=== PATIENT | female | born 1990 | race Caucasian/White ===

== ENCOUNTER 2017-08-02 15:22 | Inpatient (IN) | payer OTHER ==
[~2017-08-02] VITALS: Ht 162.6 cm; Wt 61.2 kg
[2017-08-03] MEDS ORDERED: MIRALAX 17 GM POWD.PACK PO PRN (02:00)
[2017-08-03] MEDS ORDERED: ACETAMINOPHEN 325 MG TABLET PO PRN (02:00)
[2017-08-03] MEDS ORDERED: ONDANSETRON 4 MG/2 ML VIAL IM PRN (02:00)
[2017-08-03] MEDS ORDERED: MAGNESIUM HYDROXIDE 30 ML LIQUID UDC PO PRN (02:00)
[2017-08-03] MEDS ORDERED: IBUPROFEN 400 MG TABLET PO PRN (02:00)
[2017-08-03] MEDS ORDERED: MAG HYDROX/AL HYDROX/SIMETH 30 ML LIQUID UDC PO PRN (02:00)
[2017-08-03] MEDS ORDERED: diphenhydrAMINE 50 MG CAPSULE PO PRN (02:00)
[2017-08-03] MEDS ORDERED: LOPERAMIDE HCL 2 MG CAPSULE PO PRN ×2 (02:00)
[2017-08-03] MEDS ORDERED: DICYCLOMINE HCL 20 MG TABLET PO PRN (02:00)
[2017-08-03] MEDS ORDERED: CLONIDINE HCL 0.1 MG TABLET PO PRN (02:00)
[2017-08-03 02:36] LABS: BASOPHILS # (AUTO) 0.1 K/uL (0.0-8.0); BASOPHILS % (AUTO) 1.1 % (0.0-2.0); EOSINOPHILS # (AUTO) 0.6 K/uL (0.0-0.7); EOSINOPHILS % (AUTO) 8.2 % (0.0-7.0); HEMATOCRIT 38.9 % (36.7-47.1); HEMOGLOBIN 13.3 g/dL (12.5-16.3); LYMPHOCYTES # (AUTO) 2.2 K/uL (20.0-40.0); LYMPHOCYTES % (AUTO) 31.8 % (20.5-51.5); MEAN CORPUSCULAR HEMOGLOBIN 30.1 uug (23.8-33.4); MEAN CORPUSCULAR HGB CONC 34 g/dL (32.5-36.3); MEAN CORPUSCULAR VOLUME 88.2 fL (73.0-96.2); MONOCYTES # (AUTO) 0.7 K/uL (2.0-10.0); MONOCYTES % (AUTO) 10.6 % (0.0-11.0); NEUTROPHILS # (AUTO) 3.4 K/uL (1.8-8.9); NEUTROPHILS % (AUTO) 48.3 % (38.5-71.5); PLATELET COUNT (AUTO) 453 K/uL (152-348); RED BLOOD CELL COUNT(AUTO) 4.41 MIL/uL (4.06-5.63)
--- NOTE | 2017-08-03 02:45 | NUR ---
Intake Note Pt is met in first floor Intake Room at approximately 0230. Pt presents as hyperactive, difficulty sitting still, gets up and walks around. Pt has poor eye contact, worried, avoidant, anxious and sad. Appearance is disheveled and unkempt, slumped posture. Affect is agitated with racing thoughts-pt clearly intoxicated-reports last use of IV Heroin at 0200 hours. Affect shows feelings of guilt/shame. Pt reports use over the past month escalating in past week, 6 months of sobriety before this relapse and job loss 2 days prior. VS's taken, possessions searched by CHEF TEACHER's, hospital procedure and protocols explained to pt and agreed upon.
[2017-08-03 02:50] LABS: ALANINE AMINOTRANSFERASE 41 U/L (16-63); ALKALINE PHOSPHATASE 58 U/L (50-136); AMYLASE 20 U/L (25-115); ASPARTATE AMINOTRANSFERASE 46 U/L (15-37); BILIRUBIN,TOTAL 0.4 mg/dL (0.2-1.0); CARBON DIOXIDE 26 mmol/L (21-32); CHLORIDE 100 mmol/L (98-107); CREATININE 0.8 mg/dL (0.6-1.3); GLUCOSE 63 mg/dL (74-106); LIPASE 120 U/L (73-393); MAGNESIUM 2.2 mg/dL (1.8-2.4); POTASSIUM 3.6 mmol/L (3.5-5.1); TOTAL PROTEIN, SERUM 8.6 g/dL (6.4-8.2); UREA NITROGEN, BLOOD 9 mg/dL (7-18)
[2017-08-03 02:50] LABS: *URINE HCG, QUAL NEGATIVE
[2017-08-03 02:55] LABS: ETHANOL < 3 MG/DL (0-0)
[2017-08-03 03:00] LABS: *AMPHETAMINE, URINE POSITIVE (NEGATIVE); *BARBITURATE, URINE NEGATIVE (NEGATIVE); *CANNABINOID, URINE NEGATIVE (NEGATIVE); *COCCAINE, URINE POSITIVE (NEGATIVE); *OPIATE, URINE POSITIVE (NEGATIVE); *PHENCYCLIDINE SCREEN,URINE NEGATIVE (NEGATIVE)
[2017-08-03] MEDS ORDERED: BUPRENORPHINE HCL 2 MG TAB.SUBL SL PRN (03:00)
[2017-08-03 03:01] LABS: THYROID STIMULATING HORMONE 1.914 mIU/mL (0.358-3.740)
--- NOTE | 2017-08-03 04:00 | NUR ---
Admission Note Patient is a 26 y/o female admitted at [facility] at approximately 0330am of 08/03/17or medically supervised withdrawal from Heroin. Body search done and skn check performed in Room 303, no contraband found. Track and "pick" pena found on right arm, from elbow to right neck, no bleedoing noted. Pt is 5'4" and 135 lbs per patient. Pt is cooperative during assessment but unable to sit still, speech very soft with repeated requests to speak louder. Patient is oriented to floor unit and room. Patient follows a "pescaterian" diet with NKDA, and wishes to be a full code. Pt is alert and oriented x 4(altered-severely intoxicated). No shortness fo breath noted. Respiration even & unlabored. Abdomen soft and non-distended, last bowel movement originally reported as 6 days prior, now 2 bouts of diarrhea since admitted. Pt too intoxicated for COWS or CIWA. Bowels sounds active in all quadrants, no c/o pain or H/A. Pt denies psychiatric hx, however list Psyc meds. Anxiety and depression finally admitted to. Substance Use: 1. Heroin- Pt has been using IV for 10 years with periods of sobriety, longest 9 months in 2016. Used immediately before admission. 2. Methamphetamine- Pt tested positive for, admits to using "several days prior" 3. Cocaine- Pt tested positive for, Pt stated last used 2 years prior, admits now it might be more recent. [place] Hx: November 2016- drug detox/rehab, claims 16 other times but unable to elicit. Pt refuse flu and pneumonia vaccine, When asked what is going to be different about this hospitalization she states "I have to get sober or I'm going to overdose and ". Fall precautions in place, bed locked in lowest position and in Semi-Fowlers with both upper siderails raise, Call light within reach. Will continue to monitor and attend to all needs promptly
--- NOTE | 2017-08-03 07:30 | NUR ---
Start of shift note; Received report from night nurse. Patient is a 26 year old female admitted for Opiate withdrawals. Patient appears very anxious, agitated, pacing back and forth in the room, redirected patient as needed. Patient reported diarrhea and received PRN Imodium. Patient appears disheveled, worried, reports insomnia. Patient stated " I feel like im going crazy, i cant sit still, i have not slept for days", redirected patient. Patient is AOX4, sensitive to tactile stimuli with COWS score of 10. Patient's UDS came back positive for Cocaine, Methamphetamine and Opiate. Clarified it with patient, patient stated that she took small amounts of methamphetamine and Cocaine yesterday. Educated patient regarding the importance of compliance to treatment and medication regime, verbalized understanding. All safety measures secured. Encouraged patient to get some rest and maintain adequate fluid intake. Will closely monitor patient.
[2017-08-03 08:00] VITALS: BP 113/62
[2017-08-03] MEDS ORDERED: LORAZEPAM 1 MG TABLET PO ONE (08:00)
[2017-08-03] MEDS: MULTIVITAMINS,THERAPEUTIC TABLET PO SCH (08:11)
--- NOTE | 2017-08-03 08:11 | NUR ---
Medication Administration; Patient noted to be very anxious and agitated pacing back and forth in the room and hallway unable to sit still. Charge nurse made aware. Ativan 2mg PO one time given as ordered for anxiety and agitation. Will closely monitor patient.
--- NOTE | 2017-08-03 09:11 | NUR ---
Re-assessment; Patient is calm and comfortable at this time. Patient is currently resting, respirations even and unlabored. Ativan medication noted to be effective.
[2017-08-03] MEDS ORDERED: LAMO150T PO (09:34)
[2017-08-03] MEDS ORDERED: TRAZ-147 PO (09:34)
[2017-08-03] MEDS ORDERED: VENL75TA4 PO (09:34)
[2017-08-03] MEDS ORDERED: MELA5TAB PO (09:38)
[2017-08-03] MEDS ORDERED: ADAP45GE TP (09:38)
[2017-08-03] MEDS ORDERED: [UNRECOGNIZED DRUG - CODE] TP (09:38)
[2017-08-03] MEDS ORDERED: NICO-671 TP (09:38)
[2017-08-03] MEDS ORDERED: OMEP20CA10 PO (09:38)
[2017-08-03] MEDS ORDERED: HYDROXYZINE PAMOATE 25 MG CAPSULE PO PRN (11:00)
[2017-08-03] MEDS ORDERED: LORAZEPAM 1 MG TABLET PO PRN (11:00)
[2017-08-03] MEDS ORDERED: NICOTINE 14 MG/24HR PATCH TD PRN (11:00)
[2017-08-03] MEDS ORDERED: NICOTINE POLACRILEX 4 MG GUM-PK OF TEN BC PRN (11:00)
[2017-08-03 12:00] VITALS: BP 105/73
[2017-08-03 16:00] VITALS: BP 92/56
[2017-08-03] MEDS: BUPRENORPHINE HCL 2 MG TAB.SUBL SL SCH ×2 (16:36→21:29)
--- NOTE | 2017-08-03 17:06 | NUR ---
Subutex held; Scheduled Subutex held d/t low COWS score of 7 , low BP of 92/56, HR of 58. Medication held per protocol. Will closely monitor patient.
--- NOTE | 2017-08-03 18:17 | NUR ---
End of shift note; Patient is AOX4, complaining of agitation, restless legs, flushed face and muscle aches. Patient's last COWS score is 7 at 1600. Scheduled Subutex held per protocol d/t low COWS score. Educated patient regarding the importance of compliance to treatment and medication regime, patient verbalized understanding. All safety measures secured. Will closely monitor patient.
[2017-08-03 20:00] VITALS: BP 116/72
--- NOTE | 2017-08-03 20:00 | NUR ---
Start of Shift Pt is a 26 year old female admitted for Opiate withdrawal. Pt is placed on modified Subutex taper. Pt presents in room, in bed, disheveled, unkempt, flushed, red eyes, hoarding food, clothes thrown on the floor, worried, anxious, reports feeling restless, sensitivity to light, reports body/joint/muscle aches, chills, abdominal cramping, nausea. At time of assessment, scheduled medications due. Safety measures in place, will continue to monitor.
[2017-08-03] MEDS: LAMOTRIGINE 25 MG TABLET PO SCH (20:22)
[2017-08-03] MEDS: GABAPENTIN 300 MG CAPSULE PO SCH (20:22)
[2017-08-03] MEDS ORDERED: LORAZEPAM 1 MG TABLET PO SCH (21:00)
[2017-08-04] VITALS: BP 100/82
[2017-08-04] MEDS: TRAZODONE 100 MG TABLET PO PRN (01:10)
--- NOTE | 2017-08-04 01:10 | NUR ---
PRN Administration Pt reports difficulty sleeping, requests sleeping aid. Trazodone 100mg PRN administered. Safety measures in place, will continue to monitor.
--- NOTE | 2017-08-04 02:10 | NUR ---
PRN Reassessment Upon reassessment, pt is in bed, sleeping, respirations even/unlabored. Trazodone effective. Safety measures in place, will continue to monitor.
--- NOTE | 2017-08-04 04:00 | NUR ---
COWS deferred d/t pt sleeping - to assess while pt is awake as ordered. Pt refused to be woken up for 0[address] measures in [address], will continue to monitor.
--- NOTE | 2017-08-04 07:01 | NUR ---
End of Shift Pt is a 26 year old female admitted for Opiate withdrawal. Pt is placed on modified Subutex taper. During shift, Pt remained isolative in room, in bed, disheveled, unkempt, flushed, red eyes, hoarding food, clothes thrown on the floor, worried, anxious, reports feeling restless, sensitivity to light, reports body/joint/muscle aches, chills, abdominal cramping, nausea scheduled Subutex administered, COWS 14 decreased to COWS 8. Trazodone 100mg PRN administered for sleep, effective. Pt slept for 9 hours, intake of 500 ml PO, voids x3 and stool x0. Safety measures in place, Endorsed to day shift nurse.
--- NOTE | 2017-08-04 07:36 | NUR ---
Start of shift note; Received report from night nurse. Patient is a 26 year old female admitted on 08/03/17 for Opiate withdrawals. Patient was placed on Subutex taper. Patient appears anxious, complaining of muscle aches, restless legs, diaphoresis, stomach cramps. Educated patient regarding unit protocols and policies, patient verbalized understanding. Encouraged patient to participate in group activities and therapy. All safety measures secured. Will continue to monitor patient.
[2017-08-04 08:00] VITALS: BP 113/60
[2017-08-04] MEDS: BUPRENORPHINE HCL 2 MG TAB.SUBL SL SCH ×3 (09:00→22:00)
[2017-08-04] MEDS: VENLAFAXINE XR 75 MG CAP.SR.24H PO SCH (09:00)
[2017-08-04] MEDS: MULTIVITAMINS,THERAPEUTIC TABLET PO SCH (09:00)
[2017-08-04] MEDS: LAMOTRIGINE 25 MG TABLET PO SCH ×2 (09:00→22:00)
[2017-08-04] MEDS: GABAPENTIN 300 MG CAPSULE PO SCH ×3 (09:00→22:00)
[2017-08-04] MEDS ORDERED: TUBERCULIN,PURIF.PROT.DERIV. 5 TU/0.1 ML TEST ID ONE (09:00)
[2017-08-04 09:08] LABS: HEPATITIS B SURFACE AG Negative (Negative)
[2017-08-04 12:00] VITALS: BP 115/70
--- NOTE | 2017-08-04 12:00 | NUR ---
Endorsement note; Detailed report given to covering nurse. Patient is AOX4. Safety measures secured. Met all needs.
--- NOTE | 2017-08-04 12:00 | NUR ---
TRANSFER OF CARE RECEIVED REPORT FROM NURSE. PT IS A/OX4, RESPIRATIONS EVEN AND UNLABORED. PT IS A 26/YO F ADMITTED FOR OPIATE WITHDRAWAL. PT IS PLACED ON SUBUTEX TAPER STARTED YESTERDAY AND TOLERATING WELL PER PIZZA CHEF NURSE. WILL CONTINUE TO MONITOR.
[2017-08-04] MEDS: DICYCLOMINE HCL 20 MG TABLET PO SCH ×2 (14:45→22:00)
[2017-08-04] MEDS: METHOCARBAMOL 750 MG TABLET PO PRN (14:45)
--- NOTE | 2017-08-04 14:45 | NUR ---
PRN ROBAXIN 750 MG PO PRN AND MAALOX PRN GIVEN FOR HEARTBURN AND MUSCLE CRAMPS. WILL MONITOR FOR EFFECTIVENESS.
--- NOTE | 2017-08-04 15:45 | NUR ---
REASSESSMENT PT REPORT MEDICATIONS WERE EFFECTIVE. WILL CONTINUE TO MONITOR.
[2017-08-04 16:30] VITALS: BP 130/74
--- NOTE | 2017-08-04 17:30 | NUR ---
PRN PT HAD FACIAL FLUSHING, WAS AGITATED, APPEARED FIDGETY AND PACED IN HALLWAY, C/O INTENSE FEELINGS OF ANXIETY. ATIVAN 2 MG PO PRN WAS GIVEN. WILL MONITOR FOR EFFECTIVENESS.
--- NOTE | 2017-08-04 18:30 | NUR ---
REASSESSMENT PT IS RESTING IN BED WITH EYES CLOSED AND APPEARS TO BE SLEEPING. WILL CONTINUE TO MONITOR.
--- NOTE | 2017-08-04 18:42 | NUR ---
END OF SHIFT ASSUMED CARE OF PT AT 1200. PT IS ON A SUBUTEX TAPER AND TOLERATING WELL. PT HAD INTENSE FEELINGS OF PANIC AND AGITATION; ATIVAN 2 MG PO PRN WAS GIVEN DURING SHIFT. ROBAXIN, MAALOX, ATIVAN PRNS WERE GIVEN ON SHIFT. PT WAS SLEEPING INTERMITTENTLY DURING SHIFT. PT ATE 100% OF MEALS. PT WAS ABLE TO TAKE A SHOWER. SAFETY MEASURES IN PLACE. WILL GIVE ENDORSEMENT TO GASSER MACHINE OPERATOR.
--- NOTE | 2017-08-04 19:16 | NUR ---
Start of shift note Received report from day shift nurse. Pt is a 26 yo female, A+Ox4, presenting to [facility] for Opiate/Meth/Cocaine withdrawal. Pt noted with anxiety, agitation, and restlessness. Pt is on 4 day Subutex taper, tolerated well. respirations even and unlabored. Will continue to monitor.
[2017-08-04 20:15] VITALS: BP 115/64
[2017-08-04] MEDS: CLONIDINE HCL 0.1 MG TABLET PO SCH (22:00)
[2017-08-04] MEDS: BACLOFEN 10 MG TABLET PO SCH (22:00)
[2017-08-05 00:24] VITALS: BP 127/72
[2017-08-05] MEDS ORDERED: LAMOTRIGINE 25 MG TABLET PO ONE (03:00)
[2017-08-05] MEDS: IBUPROFEN 600 MG TABLET PO PRN ×2 (03:02→11:02)
--- NOTE | 2017-08-05 03:02 | NUR ---
PRN Motrin Pt c/o headache and requested for PRN Motrin. Medication given and tolerated well. Will reassess within 1 HR. Will continue to monitor.
--- NOTE | 2017-08-05 04:01 | NUR ---
PRN Motrin Reassessment Medication effective. Pt expresses reduction in headache. No s/s of ASE noted at this time. Respirations even and unlabored. Will continue to monitor.
[2017-08-05 04:38] VITALS: BP 119/68
--- NOTE | 2017-08-05 06:59 | NUR ---
End of shift note Pt was continuously noted with agitation, anxiety, and restlessness. Pt remained in room for majority of shift except to go smoke on smoking patio and to get food from kitchen. Pt was given PRN Motrin @0302. Pt slept for a total of 8 HRS. Last COWS: 9 @0400. Respirations even and unlabored. Will endorse to day shift nurse.
--- NOTE | 2017-08-05 07:22 | NUR ---
BEGINNING OF SHIFT Patient endorsement report received from shift mgr nurse, all pertinent information discussed. Patient is a 26 year old female with admitting Dx: Opiate withdrawal, with substance use of: methamphetamine and cocaine. Patient continues under very close observation, patient Scheduled to begin day 2 of 4 day Subutex taper, as ordered. Per shift mgr patient with last cow score of: 9. Received PRN: Motrin during shift mgr. slept for 8 hours. Fall and seizure precautions observed at all times. Patient received awake, alert and oriented x4, educated regarding plan of care for the day, and medication regimen with good verbal understanding. fall and seizure precautions observed and in place. will continue to monitor closely. safety measures in place.
[2017-08-05 08:34] VITALS: BP 106/63
[2017-08-05] MEDS: MULTIVITAMINS,THERAPEUTIC TABLET PO SCH (08:37)
[2017-08-05] MEDS: CLONIDINE HCL 0.1 MG TABLET PO SCH ×2 (08:38→22:46)
[2017-08-05] MEDS: DICYCLOMINE HCL 20 MG TABLET PO SCH ×3 (08:38→22:46)
[2017-08-05] MEDS: VENLAFAXINE XR 75 MG CAP.SR.24H PO SCH (08:38)
[2017-08-05] MEDS: BACLOFEN 10 MG TABLET PO SCH ×3 (08:38→22:46)
[2017-08-05] MEDS: GABAPENTIN 300 MG CAPSULE PO SCH ×2 (08:38→14:14)
[2017-08-05] MEDS: LAMOTRIGINE 25 MG TABLET PO SCH ×2 (08:44→22:46)
[2017-08-05] MEDS ORDERED: BUPRENORPHINE HCL 2 MG TAB.SUBL SL SCH (09:00)
[2017-08-05] MEDS ORDERED: KETOROLAC TROMETHAMINE 30 MG INJ IM PRN (10:30)
[2017-08-05] MEDS: ONDANSETRON ODT 4 MG TAB.RAPDIS SL PRN (11:02)
[2017-08-05] MEDS: METHOCARBAMOL 750 MG TABLET PO PRN (11:02)
[2017-08-05] MEDS: CLONIDINE HCL 0.1 MG TABLET PO PRN (11:02)
--- NOTE | 2017-08-05 11:02 | NUR ---
PRN MOTRIN/ROBAXIN/CLONIDINE/ZOFRAN Patient reported to nurse of pain in legs 12/17, c/o increase anxiety, c/o nausea. patient was noted wringing hands, pacing in room, restlessness. patient reports "my muscle and legs hurt" patient was administered Motrin as ordered, Robaxin as ordered, and clonidine as ordered, will monitor effectiveness of medications.
--- NOTE | 2017-08-05 11:32 | NUR ---
ZOFRAN REASSESSMENT reports medication effective, feels less nausea, no vomiting noted, will continue to monitor.
--- NOTE | 2017-08-05 12:02 | NUR ---
MOTRIN/ROBAXIN/CLONIDINE REASSESSMENT Patient reports current pain level of 2/10 in leg bilateral legs, per patient tolerable pain level, reports medication effective. Patient reports feeling less anxious, clonidine effective, VS WNL.
[2017-08-05] MEDS: OMEPRAZOLE 20 MG PO SCH (12:22)
[2017-08-05 13:50] VITALS: BP 101/56
[2017-08-05] MEDS: BUPRENORPHINE HCL 2 MG TAB.SUBL SL SCH ×2 (14:14→22:46)
[2017-08-05 17:42] VITALS: BP 112/60
--- NOTE | 2017-08-05 18:59 | NUR ---
END OF SHIFT Patient alert and oriented x4, monitored closely during shift. Patient has a worried, and anxious facial expression. Patient is disheveled. noted with flat affect, and anxious mood. Patient with admitting Dx: opiate withdrawal, continues on a 4 day Subutex taper as ordered. During shift patient presented with: gooseflesh, clammy skin, flushed face, anxiety, yawning, tremors, stomach cramps, moist eyes, bone and joint aches, enlarged pupils, difficulty sitting still, restlessness, and chills. Initial cow score of: 13, last cow score of: 12. detox medication effective at reducing withdrawal symptoms. Patient was encouraged adequate PO fluid intake as tolerated. Was administered PRN: Motrin, Robaxin, Clonidine and Zofran as ordered, medications were effective. Patient encouraged to participate in therapy sessions, patient denies any SI/HI. Patient preferred to stay in room despite much encouragement to attend therapy sessions. Patient was encouraged to verbalize feelings, encouraged to develop coping skills and utilization of non pharmacological interventions. patients safety measures are in place. call light kept with in reach, will continue to monitor. Endorsed to night assistant nurse, all pertinent information discussed.
--- NOTE | 2017-08-05 19:12 | NUR ---
Start of shift note Received report from day shift nurse. Pt is a 26 yo female, A+Ox4, presenting to [facility] for Opiate/Meth/Cocaine withdrawal. Pt noted to be anxious, agitated, and restless. Pt has HX of mood disorder, ADD, and anxiety which will be monitored during shift. Pt is on 4 day Subutex taper, tolerated well. Respirations even and unlabored. Will continue to monitor.
[2017-08-05 20:11] VITALS: BP 105/71
[2017-08-05] MEDS ORDERED: GABAPENTIN 300 MG CAPSULE PO SCH (21:00)
[2017-08-05] MEDS: TRAZODONE 100 MG TABLET PO PRN (22:58)
--- NOTE | 2017-08-05 22:58 | NUR ---
PRN Trazodone Pt c/o inability to sleep and requested for PRN Trazodone. Medication given and tolerated well. Will reassess within 1 HR. Will continue to monitor.
--- NOTE | 2017-08-05 23:55 | NUR ---
PRN Trazodone Reassessment Medication effective. Pt is resting well in bed. No s/s of ASE noted at this time. Respirations even and unlabored. Will continue to monitor.
[2017-08-06] VITALS (7 sets, daily range): BP systolic 97–128; BP diastolic 55–77
[2017-08-06] MEDS: OMEPRAZOLE 20 MG PO SCH (06:30)
--- NOTE | 2017-08-06 06:55 | NUR ---
End of shift note Pt was continuously noted to be anxious, agitated, and restless. Pt remained in room for majority of shift except to get food from kitchen, to go smoke on smoking patio, and to interact with other patients in recreational room periodically. Pt was given PRN Trazodone @2258. Pt slept for a total of 7 HRS. Last COWS: 9 @0400. Respirations even and unlabored. Will endorse to day shift nurse.
--- NOTE | 2017-08-06 07:27 | NUR ---
BEGINNING OF SHIFT Patient endorsement report received from overnight stocker nurse, all pertinent information discussed. Patient is a 26 year old female with admitting Dx: Opiate withdrawal, with substance use of: methamphetamine and cocaine. Patient continues under very close observation, patient Scheduled to begin day 3 of 4 day Subutex taper, as ordered. Per overnight stocker patient with last cow score of: 9. Received PRN: Trazodone during overnight stocker. slept for 7 hours. Fall and seizure precautions observed at all times. Patient received awake, alert and oriented x4, educated regarding plan of care for the day, and medication regimen with good verbal understanding. fall and seizure precautions observed and in place. will continue to monitor closely. safety measures in place.
[2017-08-06] MEDS: VENLAFAXINE XR 75 MG CAP.SR.24H PO SCH (08:38)
[2017-08-06] MEDS: DICYCLOMINE HCL 20 MG TABLET PO SCH ×3 (08:38→23:03)
[2017-08-06] MEDS: LAMOTRIGINE 25 MG TABLET PO SCH ×2 (08:38→23:03)
[2017-08-06] MEDS: GABAPENTIN 300 MG CAPSULE PO SCH ×3 (08:38→23:03)
[2017-08-06] MEDS: MULTIVITAMINS,THERAPEUTIC TABLET PO SCH (08:38)
[2017-08-06] MEDS: BACLOFEN 10 MG TABLET PO SCH (08:38)
[2017-08-06] MEDS: BUPRENORPHINE HCL 2 MG TAB.SUBL SL SCH ×3 (08:39→23:03)
[2017-08-06] MEDS: CLONIDINE HCL 0.1 MG TABLET PO SCH ×3 (08:41→23:03)
[2017-08-06] MEDS: BACLOFEN 20 MG TABLET PO SCH ×2 (14:05→23:03)
[2017-08-06] MEDS ORDERED: VENL75CA56 PO (14:55)
[2017-08-06] MEDS ORDERED: CLON0.1T14 PO (14:55)
[2017-08-06] MEDS ORDERED: TRAZ-147 PO (14:55)
[2017-08-06] MEDS ORDERED: GABA-534 PO (14:55)
[2017-08-06] MEDS ORDERED: IBUP-1955 PO (14:55)
[2017-08-06] MEDS ORDERED: DICY20TA28 PO (14:55)
[2017-08-06] MEDS ORDERED: BACL20TA PO (14:55)
[2017-08-06] MEDS ORDERED: LAMO25TA5 PO (14:55)
[2017-08-06] MEDS ORDERED: HYDR-3895 PO (14:55)
[2017-08-06] MEDS: CLONIDINE HCL 0.1 MG TABLET PO PRN (15:05)
--- NOTE | 2017-08-06 15:06 | NUR ---
PRN GIVEN Pt c/o of increase anxiety. Pt is fidgety and unable to stay still. Clonidine 0.1mg PO PRN and Vistaril 25mg PO PRN was given as ordered. Will continue to monitor.
--- NOTE | 2017-08-06 16:06 | NUR ---
CLONIDINE/VISTARIL REASSESSMENT Patient reports medication was effective. patient is now calm reports feeling less anxiety. Vital signs WNL. will continue to monitor closely.
--- NOTE | 2017-08-06 19:01 | NUR ---
END OF SHIFT Patient alert and oriented x4, monitored closely during shift. Patient has a worried, and anxious facial expression. Patient is disheveled. noted with flat affect, and anxious mood. Patient with admitting Dx: opiate withdrawal, continues on a 4 day Subutex taper as ordered. During shift patient presented with: chills, restlessness, enlarged pupils, bone and joint aches, moist eyes, nasal congestion, abdominal cramps, fine tremors and anxiety with initial cow score of: 11, last cow score of: 11. detox medication effective at reducing withdrawal symptoms. Patient was encouraged adequate PO fluid intake as tolerated. Was administered PRN: Clonidine and Vistaril as ordered, medications were effective. Patient encouraged to participate in therapy sessions, patient denies any SI/HI. Patient preferred to stay in room despite much encouragement to attend therapy sessions. Patient was encouraged to verbalize feelings, encouraged to develop coping skills and utilization of non pharmacological interventions. patients safety measures are in place. call light kept with in reach, will continue to monitor. Endorsed to shift engineer nurse, all pertinent information discussed.
--- NOTE | 2017-08-06 19:12 | NUR ---
Start of shift note Received report from day shift nurse. Pt is a 26 yo female, A+Ox4, presenting to [facility] for Opiate/Meth/cocaine withdrawal. Pt noted with anxiety, restlessness, and agitation. Pt is on 4 day Subutex taper, tolerated well. Respirations even and unlabored. Will continue to monitor.
[2017-08-06] MEDS ORDERED: MAGNESIUM CITRATE 296 ML BOTTLE PO ONE (21:30)
[2017-08-07 00:12] VITALS: BP 124/79
[2017-08-07 04:17] VITALS: BP 127/74
--- NOTE | 2017-08-07 07:00 | NUR ---
End of shift note Pt was continuously noted to be anxious, agitated, and restless. Pt remained in room for majority of shift except to get food from kitchen and to go smoke on smoking patio. Pt is on 4 day Subutex taper, tolerated well. Pt was not given any PRN medications during shift. Pt slept for a total of 7 HRS. Last COWS: 9 @0400. Respirations even and unlabored. Will endorse to day shift nurse.
[2017-08-07] MEDS: OMEPRAZOLE 20 MG PO SCH (07:23)
--- NOTE | 2017-08-07 07:39 | NUR ---
BEGINNING OF SHIFT Patient endorsement report received from shift engineer nurse, all pertinent information discussed. Patient is a 26 year old female with admitting Dx: Opiate withdrawal, with substance use of: methamphetamine and cocaine. Patient continues under very close observation, patient Scheduled to begin day 4 of 4 day Subutex taper, as ordered. Per shift engineer patient with last cow score of: 9. Received no PRNs during shift engineer. slept for 7 hours. Fall and seizure precautions observed at all times. Patient received awake, alert and oriented x4, educated regarding plan of care for the day, and medication regimen with good verbal understanding. fall and seizure precautions observed and in place. will continue to monitor closely. safety measures in place.
[2017-08-07 08:18] VITALS: BP 122/74
[2017-08-07] MEDS: MULTIVITAMINS,THERAPEUTIC TABLET PO SCH (08:34)
[2017-08-07] MEDS: GABAPENTIN 300 MG CAPSULE PO SCH ×3 (08:34→22:12)
[2017-08-07] MEDS: LAMOTRIGINE 25 MG TABLET PO SCH ×2 (08:34→22:12)
[2017-08-07] MEDS: VENLAFAXINE XR 75 MG CAP.SR.24H PO SCH (08:34)
[2017-08-07] MEDS: DICYCLOMINE HCL 20 MG TABLET PO SCH ×3 (08:35→22:12)
[2017-08-07] MEDS: CLONIDINE HCL 0.1 MG TABLET PO SCH ×3 (08:35→22:12)
[2017-08-07] MEDS: BACLOFEN 20 MG TABLET PO SCH ×3 (08:35→22:12)
[2017-08-07] MEDS ORDERED: BUPRENORPHINE HCL 2 MG TAB.SUBL SL SCH (09:00)
[2017-08-07] MEDS ORDERED: HYDROXYZINE PAMOATE 25 MG CAPSULE PO PRN (11:30)
[2017-08-07] MEDS ORDERED: FLEET ENEMA 133 ML BOTTLE RC PRN (11:30)
[2017-08-07] MEDS ORDERED: MAGNESIUM CITRATE 296 ML BOTTLE PO PRN (12:45)
[2017-08-07] MEDS: METHOCARBAMOL 750 MG TABLET PO PRN ×2 (12:49→23:03)
--- NOTE | 2017-08-07 12:49 | NUR ---
PRN ROBAXIN Patient c/o muscle pain 10/17, provided with NPI with no relief, administered Robaxin as ordered, will monitor effectiveness of medication.
[2017-08-07] MEDS: IBUPROFEN 600 MG TABLET PO PRN ×2 (13:03→21:11)
--- NOTE | 2017-08-07 13:03 | NUR ---
PRN MOTRIN Patient c/o generalized body pain 12/17, provided with non pharmacological interventions with no relief, administered Motrin as ordered, will monitor effectiveness.
[2017-08-07 13:49] VITALS: BP 121/68
--- NOTE | 2017-08-07 13:49 | NUR ---
ROBAXIN REASSESSMENT Patient reports medication somewhat effective, decrease in muscle aches current pain: 08/17. will continue to monitor.
--- NOTE | 2017-08-07 14:04 | NUR ---
MOTRIN REASSESSMENT Patient reports medication somewhat effective, current pain level of 4/10. no facial grimacing noted. will continue to monitor.
--- NOTE | 2017-08-07 14:27 | NUR ---
PRN: MAG CITRATE Patient reports feeling constipated, and only mediation that works for her is magnesium citrate, patient was offered a stool softener and refused. abdomen is soft and noted with mild distention, abdomen sounds heard in all quadrats, medication administered as ordered. will monitor closely.
[2017-08-07 16:23] VITALS: BP 128/77
[2017-08-07] MEDS: ONDANSETRON ODT 4 MG TAB.RAPDIS SL PRN (16:27)
--- NOTE | 2017-08-07 16:28 | NUR ---
PRN ZOFRAN/TYLENOL Patient reports pain level of 6/10 generalized body, reports feeling nausea. Administered Tylenol as ordered for pain, and Zofran 4MGSL as ordered for nausea, will monitor effectiveness of medications.
--- NOTE | 2017-08-07 17:28 | NUR ---
TYLENOL REASSESSMENT Patient reports medication effective, current pain level 2/10 will continue to monitor.
--- NOTE | 2017-08-07 17:28 | NUR ---
ZOFRAN REASSESSMENT Medication effective, patient reports no longer feels nauseous. will continue to monitor.
--- NOTE | 2017-08-07 19:00 | NUR ---
END OF SHIFT Patient alert and oriented x4, monitored closely during shift. Patient has a worried, and anxious facial expression. Patient is disheveled. noted with flat affect, and anxious mood. Patient with admitting Dx: opiate withdrawal, completed Subutex taper as ordered, and is scheduled to be discharged tomorrow morning. . During shift patient presented with: chills, difficulty sitting still, mild bone and joint aches, enlarged pupils, moist eyes, stomach cramps, tremors that can be felt but not seen, and anxiety. Initial cow score of: 9, and last cow score of: 6. Patient was encouraged adequate PO fluid intake as tolerated. Was administered PRN: Tylenol, Zofran, mag citrate, Robaxin, and Motrin as ordered, medications were effective. Patient encouraged to participate in therapy sessions, patient denies any SI/HI. Patient preferred to stay in room despite much encouragement to attend therapy sessions. Patient was encouraged to verbalize feelings, encouraged to develop coping skills and utilization of non pharmacological interventions. patients safety measures are in place. call light kept with in reach, will continue to monitor. Endorsed to security shift manager nurse, all pertinent information discussed.
--- NOTE | 2017-08-07 19:15 | NUR ---
START OF SHIFT Patient is a 26-year-old female admitted on 08/03/17 for Heroin and Fentanyl withdrawal. Patient has completed a modified Subutex taper this morning, tolerated well, scheduled for discharge tomorrow. Patients last COWS score was 6 per day shift nurse. Patient PRN Robaxin, Motrin, Tylenol, Zofran, and mag citrate x2 for constipation. Patient reports that she is still constipated at this time. Upon assessment, patient is alert and oriented x4, complaining of stomach pain related to constipation. Patient reports increased anxiety related to discharge tomorrow as well as generalized body aches 8/10 on pain scale. Patients room has several food wrappers and beverage bottles scattered across countertops. Patient is on fall precautions with no history of seizure. Safety measures in place, side rails up x2, bed locked in low position, call light within reach. Will continue to monitor.
[2017-08-07 20:00] VITALS: BP 114/74
--- NOTE | 2017-08-07 20:07 | NUR ---
PRN FLEET ENEMA Patient continues to complain of constipation and "stomach pain" despite mag citrate x2 today. PRN Fleet Enema administered via rectum, patient tolerated well. SN instructed patient about enema and answered patient's questions. Safety measures in place, call light within reach. Will monitor for effectiveness.
--- NOTE | 2017-08-07 20:37 | NUR ---
PRN FLEET ENEMA REASSESSMENT Patient reports that she was able to have "a couple" bowel movements, describing the stool "hard and rock-like" initially, as the stool progressed to softer "mushy" stool. Patient reports that her stomach pain has improved and "barely hurts anymore." PRN fleet enema effective. Safety measures in place, call light within reach. Will continue to monitor.
--- NOTE | 2017-08-07 21:11 | NUR ---
PRN MOTRIN Patient reports generalized body aches, 8/10 on pain scale. PRN Motrin given PO. Safety measures in place, call light within reach. Will monitor for effectiveness.
--- NOTE | 2017-08-07 22:11 | NUR ---
PRN MOTRIN REASSESSMENT Patient reports the pain has improved "slightly" and is currently reporting pain as tolerable. Safety measures in place, call light within reach. Will continue to monitor.
[2017-08-07] MEDS: TRAZODONE 100 MG TABLET PO PRN (23:06)
--- NOTE | 2017-08-07 23:06 | NUR ---
PRN ROBAXIN & TRAZODONE Patient reports pain 8/10 for generalized body aches. Patient reports difficulty sleeping and is requesting sleep aid. PRN Robaxin given PO at 2303, PRN Trazodone given PO at 2306. Safety measures in place, call light within reach. Will monitor for effectiveness.
[2017-08-08] VITALS: BP 106/58
--- NOTE | 2017-08-08 | NUR ---
COWS DEFERRED COWS deferred due to patient sleeping; to be assessed and scored while patient is awake. Respirations even and unlabored, 16 breaths per min. Safety measures in place, call light within reach. Will continue to monitor.
--- NOTE | 2017-08-08 00:06 | NUR ---
PRN ROBAXIN & TRAZODONE REASSESSMENT Patient is observed in bed resting with eyes closed. PRN Trazodone effective. Unable to reassess PRN Robaxin at this time. Patient's respirations even and unlabored, safety measures in place, call light within reach. Will continue to monitor.
--- NOTE | 2017-08-08 04:00 | NUR ---
COWS DEFERRED COWS deferred again at 0400 due to patient sleeping; to be assessed and scored while patient is awake. Respirations even and unlabored, 16 breaths per min. Safety measures in place, call light within reach. Will continue to monitor. Addendum: 08/08/17 at 0536 by CECI ALAS LVN Patient also refused 4AM vital signs.
[2017-08-08] MEDS: OMEPRAZOLE 20 MG PO SCH (06:35)
--- NOTE | 2017-08-08 07:00 | NUR ---
END OF SHIFT Patient is a 26-year-old female admitted on 08/03/17 for Heroin and Fentanyl withdrawal. Patient has completed a modified Subutex taper yesterday, tolerated well, scheduled for discharge today. Patients last COWS score was 8. Patient received PRN Robaxin, Motrin, Trazodone and a fleet enema for constipation. Patient was able to have 3 bowel movements during the shift and reports relief from stomach pain. Patient slept for 7 hours, total intake 855mL, void x1, stool x3. Patient is on fall precautions with no history of seizure. Safety measures in place, side rails up x2, bed locked in low position, call light within reach. Will endorse to day shift.
--- NOTE | 2017-08-08 07:30 | NUR ---
START OF SHIFT NOTE Received report from night nurse, 26 year old female admitted for Opioid, Methamphetamine, Cocaine withdrawal. Patient completed her Subutex taper tolerated well. Per endorsement patient received PRN Robaxin, Motrin, Trazodone, fleet enema effective per night nurse. Received patient awake, alert and oriented x4, educated regarding plan of rehab and medication regimen with good verbal understanding. Safety measures in place. will continue to monitor.
[2017-08-08 08:00] VITALS: BP 108/64
[2017-08-08] MEDS: MULTIVITAMINS,THERAPEUTIC TABLET PO SCH (08:14)
[2017-08-08] MEDS: VENLAFAXINE XR 75 MG CAP.SR.24H PO SCH (08:14)
[2017-08-08] MEDS: LAMOTRIGINE 25 MG TABLET PO SCH (08:14)
[2017-08-08] MEDS: GABAPENTIN 300 MG CAPSULE PO SCH (08:14)
[2017-08-08] MEDS: BACLOFEN 20 MG TABLET PO SCH (08:14)
[2017-08-08] MEDS: DICYCLOMINE HCL 20 MG TABLET PO SCH (08:14)
[2017-08-08 08:15] VITALS: BP 112/72
[2017-08-08] MEDS: CLONIDINE HCL 0.1 MG TABLET PO SCH (08:15)
--- NOTE | 2017-08-08 09:27 | NUR ---
DISCHARGE NOTE Patient has been discharged from [facility] Patient is in Stable condition, VS WNL. Denies suicidal and homicidal ideations at this time. All documentation has been completed, paperwork signed and dated. Pt left with all of her belongings, medications and prescriptions. Pt has been discharged from [facility] on 08/08/17 at 0927. has been Notified.
== END 2017-08-08 09:27 | disposition other institution (70) | DRG 895 ==
LOC: EDSEX 08-03 01:48 → SRC 08-03 01:48
PROVIDERS: ADMIT Internal Medicine; ATTEND Internal Medicine
PROC: HZ2ZZZZ Detoxification Services for Substance Abuse Treatment (ICD-10-PCS; principal; 2017-08-03)
PROC: HZ31ZZZ Individual Counseling for Substance Abuse Treatment, Behavioral (ICD-10-PCS; 2017-08-05)
DX: F11.23 Opioid dependence with withdrawal (principal); Z86.74 Personal history of sudden cardiac arrest; F14.20 Cocaine dependence, uncomplicated; F15.221 Other stimulant dependence with intoxication delirium; Z91.89 Other specified personal risk factors, not elsewhere classified; Z59.1 Inadequate housing; G47.00 Insomnia, unspecified; F17.210 Nicotine dependence, cigarettes, uncomplicated; F10.10 Alcohol abuse, uncomplicated; Y90.9 Presence of alcohol in blood, level not specified; F41.9 Anxiety disorder, unspecified; F90.9 Attention-deficit hyperactivity disorder, unspecified type; E16.2 Hypoglycemia, unspecified; F31.9 Bipolar disorder, unspecified; R74.0 Nonspecific elevation of levels of transaminase and lactic acid dehydrogenase [LDH]
CPT/HCPCS: 36415; 80307; 80324; 80353; 80361; 83690; 83735; 84443; 84703; 85025; 86580; 86592; 86705; 86803; 87340; 87806; A4663; G0480; Q0162